=== PATIENT | male | born 1975 | race Two or more races ===

== ENCOUNTER 2022-10-11 20:04 | Emergency (ER) | payer OTHER ==
[~2022-10-11] VITALS: Ht 167.6 cm; Wt 72.8 kg
[2022-10-11 20:20] VITALS: BP 150/106
== END 2022-10-11 21:43 | disposition home or self-care (01) ==
LOC: ER 20:04
DX: H00.012 Hordeolum externum right lower eyelid (principal); I12.9 Hypertensive chronic kidney disease with stage 1 through stage 4 chronic kidney disease, or unspecified chronic kidney disease; N18.9 Chronic kidney disease, unspecified

== ENCOUNTER 2023-02-24 01:36 | Emergency (ER) | payer MEDICAID, OTHER ==
[~2023-02-24] VITALS: Ht 167.6 cm; Wt 68.9 kg
[2023-02-24 02:02] VITALS: BP 163/115
[2023-02-24 03:21] LABS: Basophils # (auto) 0 10 ^3/uL (0-0.2); Basophils % (auto) 0.3 % (0.0-2.0); Eosinophils # (auto) 0.3 10 ^3/uL (0-0.8); Eosinophils % (auto) 2.2 % (0.0-7.0); Hematocrit 43.8 % (41.0-53.0); Lymphocytes # (auto) 1.9 10 ^3/uL (0.4-5.4); Mean Corpuscular Hemoglobin 29.8 pg (28.0-32.0); Mean Corpuscular Hgb Conc. 34.4 g/dL (32.0-36.0); Mean Corpuscular Volume 86.6 fL (80.0-100.0); Monocytes # (auto) 0.9 10 ^3/uL (0-1.3); Monocytes % (auto) 7.6 % (0.0-12.0); Neutrophils # (auto) 8.8 10 ^3/uL (1.6-8.6); Neutrophils % (auto) 73.9 % (37.0-80.0); Nucleated Red Blood Cells % 0.1 %; Red Blood Cells 5.05 10^6/uL (4.5-5.90); Red Cell Distribution Width 12.8 % (11.8-14.3)
[2023-02-24 03:29] LABS: Anion Gap 7.8 (5-15); Calcium 7.6 mg/dL (8.5-10.1); Carbon Dioxide 24.2 mmol/L (20-30); Chloride 106 mmol/L (98-107); Potassium 3.5 mmol/L (3.5-5.1); Sodium 138 mmol/L (136-145)
[2023-02-24 03:34] LABS: Blood Urea Nitrogen 34 mg/dL (9-23); Glucose 108 mg/dL (74-106)
[2023-02-24 04:20] VITALS: PULSE 87; RESP 16; TEMP 97.7; O2SAT 98
[2023-02-24] MEDS ORDERED: methylPREDNISolone SOD SUCC 40 MG/ML VL IM ONE (05:00)
[2023-02-24] MEDS ORDERED: HYDROcodone-ACET 10/325MG TAB PO ONE (05:00)
[2023-02-24] MEDS ORDERED: HYDR-4798 PO (05:01)
[2023-02-24] MEDS ORDERED: PRED20TA2 PO (05:03)
== END 2023-02-24 05:18 | disposition home or self-care (01) ==
LOC: ER 01:36
DX: M10.9 Gout, unspecified (principal); I12.9 Hypertensive chronic kidney disease with stage 1 through stage 4 chronic kidney disease, or unspecified chronic kidney disease; N18.9 Chronic kidney disease, unspecified
CPT/HCPCS: 36415; 73630; 80048; 84550; 85025; 96372; 99284; J2920

== ENCOUNTER 2023-06-21 19:46 | Emergency (ER) | payer MEDICAID ==
[~2023-06-21] VITALS: Ht 167.6 cm; Wt 69.8 kg
[~2023-06-21 19:46] MED LIST: HYDR-4798 PO; PRED20TA2 PO
[2023-06-21 20:17] VITALS: BP 168/106; PULSE 77; RESP 16; O2SAT 99
== END 2023-06-22 01:30 | disposition left against medical advice (07) ==
LOC: ER 19:46
DX: M79.621 Pain in right upper arm (principal); Z53.21 Procedure and treatment not carried out due to patient leaving prior to being seen by health care provider
CPT/HCPCS: 73060

== ENCOUNTER 2024-02-28 09:43 | Emergency (ER) | payer MEDICAID ==
[~2024-02-28] VITALS: Ht 167.6 cm; Wt 67.6 kg
[2024-02-28] MEDS ORDERED: ACET-1080 PO (11:20)
[2024-02-28] MEDS ORDERED: PRED20TA2 PO (11:20)
[2024-02-28] MEDS: methylPREDNISolone SOD SUCC 125 MG/2 ML VL IM ONE (11:27)
[2024-02-28] MEDS ORDERED: AMLO1TAB23 PO (11:33)
[2024-02-28 11:34] VITALS: BP 158/103; PULSE 79; RESP 16; TEMP 98.8; O2SAT 98
== END 2024-02-28 11:40 | disposition home or self-care (01) ==
LOC: ER 09:43
DX: M10.072 Idiopathic gout, left ankle and foot (principal); I12.9 Hypertensive chronic kidney disease with stage 1 through stage 4 chronic kidney disease, or unspecified chronic kidney disease; N18.9 Chronic kidney disease, unspecified; Z76.0 Encounter for issue of repeat prescription; Z79.899 Other long term (current) drug therapy
CPT/HCPCS: 96372; 99283; J2919

== ENCOUNTER 2024-05-01 12:26 | Emergency (ER) | payer MEDICAID ==
[~2024-05-01] VITALS: Ht 167.6 cm; Wt 69.1 kg
[~2024-05-01 12:26] MED LIST changes: +ACET-1080 PO; +AMLO1TAB23 PO
[2024-05-01 13:45] VITALS: BP 121/88; PULSE 80; RESP 17; TEMP 98; O2SAT 99
[2024-05-01] MEDS: traMADol HCL 50 MG TAB PO ONE (13:51)
--- NOTE | 2024-05-01 13:59 | ED.PDOC ---
Back pain HPI HPI Comments A 48 YEAR OLD MALE PRESENTS TO THE ED WITH COMPLAINT OF LOWER BACK PAIN THAT RADIATES DOWN LEFT LEG. PATIENT STATES HE HAS A HISTORY OF CHRONIC LOWER BACK PAIN AND SCIATICA PAIN AND STATES THAT HE HAS BEEN EXPERIENCING LOWER BACK PAIN THAT RADIATES DOWN HIS LEFT LEG FOR THE PAST 2 DAYS. PATIENT DENIES SADDLE ANESTHESIA, URINARY INCONTINENCE, BOWEL INCONTINENCE, FEVER, CHILLS, SHORTNESS OF BREATH, CHEST PAIN, ABDOMINAL PAIN, NAUSEA, VOMITING, HEADACHE, OR OTHER COMPLAINTS. NO OTHER SYMPTOMS OR MODIFYING FACTORS AT THIS TIME. PATIENT IS ALERT, ORIENTED X 4, AND HAS STEADY GAIT. Chief Complaint: Back Pain Time Seen by MD: 12:36 Primary Care Provider: UNKNOWN Reviewed Notes: Nurses Notes, Medications, Allergies Allergies: Coded Allergies: NO KNOWN ALLERGIES (Unverified , 10/11/22) Home Meds Active Scripts Amlodipine Besylate (Amlodipine Besylate) 10 Mg Tab, 1 TAB PO DAILY, #30 TAB Prov:FRANCHESKA FENG 02/28/24 Acetaminophen (Tylenol 8 Hour Arthritis) 650 Mg Tab, 650 MG PO TID, #30 TAB Prov:FRANCHESKA FENG 02/28/24 Prednisone (Prednisone) 20 Mg Tab, 40 MG PO DAILY, #20 TAB Prov:FRANCHESKA FENG 02/28/24 Prednisone (Prednisone) 20 Mg Tab, 40 MG PO DAILY for 7 Days, #14 TAB 0 Refills Prov:DEVEN BARKER NP 06/30/23 Prednisone (Prednisone) 20 Mg Tab, 20 MG PO DAILY for 5 Days, #15 MG Prov:[employer] 02/24/23 Hydrocodone-Acetaminophen (Hydrocodone Bitartrate/AC 10-325 mg) 1 Tab Tab, 1 TAB PO BID PRN for 5 Days, #10 TAB Prov:J[employer] 02/24/23 Information Source: Patient Mode of Arrival: Ambulatory Timing: Days Duration: Since onset, Days Location of Back pain: (B) Lumbar Radiates to: Anterior: (L) Buttocks, (L) Calf, (L) Thigh Radiates to: Posterior: (L) Buttocks, (L) Calf, (L) Thigh Radiates to: Medial: (L) Buttocks, (L) Calf, (L) Thigh Radiates to: Lateral: (L) Buttocks, (L) Calf, (L) Thigh Severity: Moderate Prehospital treatment: None Quality: Aching, Burning, Cramping Onset: Spontaneous History of: Chronic Back Pain Modifying Factors: Movement Associated signs and symptoms: None Past Medical History PAST MEDICAL HISTORY: CKF, Gout, HTN Past Medical History (Other): CHRONIC LOW BACK PAIN Surgical History: Denies all surgeries Family History Family History: Reviewed,noncontributory to illness Social History Smoker: Non-Smoker Alcohol: Denies ETOH Use Drugs: Denies Drug Use Lives In: Home Constitutional: denies: chills, diaphoresis, fatigue, fever, malaise, sweats, weakness, others EENTM: denies: blurred vision, double vision, ear bleeding, ear discharge, ear drainage, ear pain, ear ringing, eye pain, eye redness, hearing loss, mouth pain, mouth swelling, nasal discharge, nose bleeding, nose congestion, nose pain, photophobia, tearing, throat pain, throat swelling, voice changes, others Respiratory: denies: cough, hemoptysis, orthopnea, SOB at rest, shortness of breath, SOB with excertion, stridor, wheezing, others Cardiovascular: denies: chest pain, dizzy spells, diaphoresis, Dyspnea on exertion, edema, irregular heart beat, left arm pain, lightheadedness, palpi tations, PND, syncope, others Gastrointestinal: denies: abdomen distended, abdominal pain, blood streaked bowels, constipated, diarrhea, dysphagia, difficulty swallowing, hematemesis, melena, nausea, poor appetite, poor fluid intake, rectal bleeding, rectal pain, vomiting, others Genitourinary: denies: burning, dysuria, flank pain, frequency, hematuria, incontinence, penile discharge, penile sore, pain, testicle pain, testicle swelling, urgency, others Neurological: denies: dizziness, fainting, headache, left sided numbness, left sided weakness, numbness, paresthesia, pre-existing deficit, right sided numbness, right sided weakness, seizure, speech problems, tingling, tremors, weakness, others Musculoskeletal: reports: back pain, muscle pain; denies: gout, joint pain, joint swelling, muscle stiffness, neck pain, others Integumetry: denies: bruises, change in color, change in hair/nails, dryness, laceration, lesions, lumps, rash, wounds, others Allergic/Immunocompromised: denies: Difficulty Healing, Frequent Infections, Hives, Itching, others Hematologic/Lymphatic: denies: anemia, blood clots, easy bleeding, easy bruising, swollen glands, others Endocrine: denies: excessive hunger, excessive sweating, excessive thirst, excessive urination, flushing, intolerance to cold, intolerance to heat, unexpla ined weight gain, unexplained weight loss, others Psychiatric: denies: anxiety, bipolar disorder, depression, hopeless, panic disorder, schizophrenia, sleepless, suicidal, others All Other Systems: Reviewed and Negative Physical Exam General Appearance: No Apparent Distress, Normal HEENT: Normal ENT Inspection, PERRL/EOMI, Pharynx Normal, TMs Normal Neck: Full Range of Motion, Non-Tender, Normal, Normal Inspection Respiratory: Chest Non-Tender, Lungs Clear, No Accessory Muscle Use, No Respir atory Distress, Normal Breath Sounds Cardiovascular: No Edema, No JVD, No Murmur, No Gallop, Normal Peripheral Pulses, Regular Rate/Rhythm Breast Exam: Deferred Gastrointestinal: No Organomegaly, Non Tender, No Pulsatile Mass, Normal Bowel Sounds, Soft Genitalia: Deferred Pelvic: Deferred Rectal: Deferred Extremities: No calf tenderness, Normal capillary refill, Normal inspection, Normal range of motion, Non-tender, No pedal edema Musculoskeletal : Location: Bilateral Extremity Location: Back Apperance: Tenderness: Moderate (TENDERNESS AND MUSCLE SPASM ON LOWER BACK, NO BONY TENDERNESS, SWELLING AND DEFORMITY. NO CVA TENDERNESS. ) Neurologic: Alert, powder loader II-XII nml as Tested, No Motor Deficits, Normal Affect, Normal Mood, No Sensory Deficits Cerebellar Function: Normal Reflexes: Normal Skin: Dry, Normal Color, Warm Peripheral Pulses: 2+ carotid (R), 2+ carotid (L) Lymphatic: No Adenopathy Was a procedure done? Was a procedure done?: No Back Pain Differential Dx Differential Diagnosis: Musculoskeletal Pain Other Differential Diagnosis DDD, LUMBAR RADICULOPATHY, SCIATICA PAIN X-Ray, Labs, Meds, VS Vital Signs Date Time Temp Pulse Resp B/P (MAP) Pulse Ox O2 Delivery O2 Flow Rate FiO2 05/01/24 13:45 98.0 80 17 121/88 (99) 99 98.0 05/01/24 13:45 80 17 99 Room Air 05/01/24 13:14 98.0 80 17 121/88 (99) 99 Current Medications Medications (Trade) Dose Ordered Sig/Tish Route Start Time Stop Time Status Last Admin Tramadol HCl (Ultram) 50 mg ONCE ONCE PO 05/01/24 14:00 05/01/24 14:01 DC 05/01/24 13:51 X-Ray, Labs, Meds, VS Comment TREATMENT ULTRAM 50 MG P.O. Time of 1ST Reevaluation: 14:12 Reevaluation 1ST: Improved Patient Education/Counseling: Diagnosis, Treatment, Need For Follow Up Family Education/Counseling: Diagnosis, Treatment, Need For Follow Up Medical Screening: No EMC Exist At This Time Departure 1 Departure Time of Disposition: 14:20 Impression: Primary Impression: Acute exacerbation of chronic low back pain Additional Impression: Pain management Disposition: HOME / SELF CARE / HOMELESS Condition: Stable Additional Instructions: FOLLOW-UP WITH PCP IN 1 TO 2 DAYS. TAKE MEDICATIONS PRESCRIBED. RETURN TO ED FOR ANY NEW OR WORSENING SYMPTOMS. e-Prescriptions Tramadol HCl (Tramadol HCl) 50 Mg Tab 50 MG PO TID, #20 TAB Prov: FRANCHESKA FENG 05/01/24 Discharged With: Self Critical Care Note Critical Care Time?: No Stability Stability form required: No I personally scribed for FRANCHESKA FENG ([email or web address]) on 05/01/24 at 13:59. Electronically submitted by Colten Murillo ([email or web address]). FRANCHESKA FENG May 01, 2024 13:59
[2024-05-01] MEDS ORDERED: TRAM-626 PO (14:13)
== END 2024-05-01 14:22 | disposition home or self-care (01) ==
LOC: ER 12:26
DX: G89.29 Other chronic pain (principal); M54.50 Low back pain, unspecified; I10 Essential (primary) hypertension; Z79.52 Long term (current) use of systemic steroids